=== PATIENT | female | born 2000 | race Caucasian/White ===

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

== ENCOUNTER 2023-05-22 23:29 | Inpatient (IN) ==
[2023-05-23] MEDS ORDERED: LIDOCAINE 1% LOCAL 20 ML VIAL INFIL PRN
--- NOTE | 2023-05-23 00:05 | History & Physical Report ---
Date of Service May 23, 2023 Assessment & Plan (1) Supervision of normal intrauterine in multigravida: Plan: Admit to L&D. EFM/toco. Labs. IV. OK for epidural if she desires. History of Present Illness Chief Complaint: contractions Primary Care Provider: RACHEL Batista 23yo @ 39 06/26, here with contractions. No leaking, no vaginal bleeding. +FM. Need for Rhogam due to RH Negative Mother *Rhogam given 10/10/22 Medical Marijuana Card--weaned and d/c once +upt covid unvaccinated Rubella equivocal-offer MMR pp Flu shot given 02/06/23 - [place] Rhogam given 03/08/23 - [place] Allergies Allergy/AdvReac Type Severity Reaction Status Date / Time No Known Allergies Allergy Verified 05/21/23 13:04 Home Medications Medication Instructions Recorded Confirmed Type valacyclovir 1 gram tablet 2,000 mg (2 x 1 gram) PO 04/24/22 05/21/23 Rx DIRECTED PRN Cold Sores #4 tabs vitamin#30 30 mg iron-10 1 cap PO DAILY #90 caps 11/23/22 05/21/23 Rx mg iron-folic acid 1 mg-omg3 capsule albuterol sulfate 90 mcg/actuation 2 puff inhalation QID PRN 11/27/22 05/21/23 Rx aerosol inhaler Shortness Of Breath Or Wheezing #8.5 grams polyethylene glycol 3350 17 17 g PO DAILY PRN constipation 01/07/23 05/21/23 History gram/dose oral powder (Miralax) Patient History Medical History Anxiety and depression Bipolar disorder Celiac disease Constipation GERD (gastroesophageal reflux disease) History of COVID-19 06/12/20>HEADACHE/SINUS CONGESTION Hx of migraines Medical marijuana use Pelvic inflammatory disease Post traumatic stress disorder Wheezing WILL USE INHALER/WHEN GETS A COLD WILL NEED INHALER (USED LAST WINTER) Surgical History H/O knee surgery left knee-2017 History of anesthesia reaction ASPIRATED WITH T&A History of cholecystectomy History of colonoscopy last 07/03/21 @ [facility] History of esophagogastroduodenoscopy (EGD) last 07/03/21 @ [facility] History of tonsillectomy and adenoidectomy (07/07/12) Hx of appendectomy [place] teeth removed Family History Father Diabetes Anxiety Kidney stones Asthma Mother Ovarian cyst Cholelithiasis Diabetes Immunodeficiency disorder Migraine headache Hypothyroidism Family history of reaction to anesthesia PONV Cystic fibrosis Allergic rhinitis Celiac disease Asthma Sister Asthma Grandfather (Paternal) Diabetes Grandfather (Maternal) Diabetes Aunt Family hx of colon cancer Colorectal cancer Maternal Grandmother (Maternal) Ovarian cancer Denies family history of Prostate cancer Breast cancer Lung cancer Social History (Updated 10/11/22 @ 11:00 by Mery Askew) Smoking Status: Never smoker Second Hand Exposure: No; Do You Dip or Chew Tobacco: No; Hx Alcohol Use: No Hx Substance Use: Yes (medical marijuana) Last Used Substance Other:: RX MARIJUANA Preferred Language: [place]ib[place] Communication Ability: Effective Visual Impairment: No Limitations Hearing Ability: Normal Carpenter Assistant Required: No Beliefs That Will Affect Care: None marital status: Single marital status details: Lionel (46) [phone] Current Living Situation: Family and Significant Other Current Living Situation Comment: lives with fob, son, 2 dogs, 4 cats, 1 bunnny, fob to change litter current occupational status: unemployed Feels Safe at Home: Yes Childhood Exposure to Second-Hand Smoke: Yes caffeine: Yes Dental Care, Regularly: Yes Physical Activity Frequency: 3-4 Times per Week Seatbelt Use: always Sunscreen Use: No Assistive Devices: None Review of Systems All systems reviewed & are unremarkable except as noted in HPI & below Physical Exam Physical Exam: FHT Cat 1 [place] Q 2-4 SVE 4cm per RN exam on arrival Constitutional: WD/WN, vitals as above Respiratory: normal respiratory effort, lungs clear to auscultation no respiratory distress Cardiovascular: Rate/Rhythm: regular rate and regular rhythm Gastrointestinal (Abdomen): Inspection/Auscultation: abdomen normal to inspection Percussion/Palpation: abdomen soft; abdomen nontender Gravid. No s/s chorio or abruption. Skin: no rashes, warm and dry Psychiatric: A+Ox3, euthymic affect Results & Data Vital Signs (Past 12 Hours) Vital Signs Pulse BP 05/22/23 23:46 102 H 136/67 Coding Level of Care Code None Diagnoses Supervision of normal intrauterine in multigravida Z34.80
[2023-05-23] MEDS: LACTATED RINGER'S 1,000 ML IV PRN ×3 (00:10→07:04)
[2023-05-23 00:38] LABS: Hematocrit (blood only) 38.4 % (37.0-47.0); Hemoglobin 13.4 g/dl (12.0-16.0); Mean Corpuscular Hemoglobin 30.2 pg (25.0-34.0); Mean Corpuscular Hgb Conc 34.9 g/dL (32.0-36.0); Mean Corpuscular Volume 86.7 fL (80.0-100.0); Platelet Count 178 K/uL (130-400); RDW Standard Deviation 40.5 fL (36.4-46.3); Red Blood Count 4.43 M/uL (4.20-5.40); White Blood Count 13.16 K/ul (4.8-10.8)
[2023-05-23] MEDS ORDERED: fentaNYL citrate PF 100 MCG/2 ML VIAL ONE (02:14)
[2023-05-23] MEDS ORDERED: ePHEDrine sulfate 50 MG/ML AMP ONE (02:15)
[2023-05-23] MEDS ORDERED: fentANYL 2 MCG/ML BUPIVacaine 0.125%-NSS 100ML BAG ONE (02:15)
[2023-05-23] MEDS ORDERED: SODIUM CHLORIDE 0.9% PF INJ 10 ML VIAL ONE (02:15)
[2023-05-23] MEDS ORDERED: LIDOCAINE 2%/EPINEPHRINE 1:200,000 20 ML PF ONE (02:15)
[2023-05-23] MEDS ORDERED: BUPIVACAINE 0.25% PF 30 ML VIAL ONE (02:15)
[2023-05-23] MEDS ORDERED: fentaNYL citrate PF 100 MCG/2 ML VIAL EPI PRN (02:21)
[2023-05-23] MEDS ORDERED: LIDOCAINE 2%/EPINEPHRINE 1:200,000 20 ML PF EPI STA (02:21)
[2023-05-23] MEDS ORDERED: NALOXONE HCL 0.4 MG/1 ML VIAL/CARP IV PRN (02:21)
[2023-05-23] MEDS ORDERED: ROPIVACAINE 0.5% PF 5 MG/ML 20 ML VIAL EPI PRN (02:21)
[2023-05-23] MEDS ORDERED: NALBUPHINE HCL 5 MG in SYRINGE 0 ML IV PRN (02:21)
[2023-05-23] MEDS ORDERED: SODIUM CHLORIDE 0.9% PF INJ 10 ML VIAL EPI PRN (02:21)
[2023-05-23] MEDS ORDERED: fentANYL 2 MCG/ML BUPIVacaine 0.125%-NSS 100ML BAG EPI PRN (02:21)
[2023-05-23] MEDS ORDERED: BUPIVACAINE 0.25% PF 30 ML VIAL EPI PRN (02:21)
[2023-05-23] MEDS ORDERED: diphenhydrAMINE 50 MG/ML VIAL IV PRN (02:21)
[2023-05-23] MEDS ORDERED: SODIUM CHLORIDE 0.9% PF INJ 10 ML VIAL EPI STA (02:21)
[2023-05-23] MEDS ORDERED: BUPIVACAINE 0.25% PF 30 ML VIAL EPI STA (02:21)
[2023-05-23] MEDS ORDERED: fentaNYL citrate PF 100 MCG/2 ML VIAL EPI STA (02:21)
[2023-05-23] MEDS ORDERED: NALOXONE HCL 1 MG in SODIUM CHLORIDE 0.9% 1,000 ML IV PRN (02:21)
[2023-05-23] MEDS ORDERED: LIDOCAINE 2% MPF LOCAL 5 ML VIAL EPI PRN (02:21)
--- NOTE | 2023-05-23 02:21 | Anesthesiology Consultation ---
Date of Service May 23, 2023 Assessment & Plan Chart Review Chart Review: Acceptable Risk for Labor Epidural Consults Requested none History Height/Weight Height: 5 ft 4 in Weight: 89.358 kg Allergies Allergy/AdvReac Type Severity Reaction Status Date / Time No Known Allergies Allergy Verified 05/21/23 13:04 Medications Home Medications Medication Instructions Recorded Confirmed Last Taken valacyclovir 1 gram tablet 2,000 mg (2 x 1 gram) PO 04/24/22 05/23/23 Unknown DIRECTED PRN Cold Sores #4 tabs vitamin#30 30 mg iron-10 1 cap PO DAILY #90 caps 11/23/22 05/23/23 Unknown mg iron-folic acid 1 mg-omg3 capsule albuterol sulfate 90 mcg/actuation 2 puff inhalation QID PRN 11/27/22 05/23/23 Unknown aerosol inhaler Shortness Of Breath Or Wheezing #8.5 grams polyethylene glycol 3350 17 17 g PO DAILY PRN constipation 01/07/23 05/23/23 Unknown gram/dose oral powder (Miralax) Active Medications Generic Name Dose Route Start Last Admin Trade Name Freq PRN Reason Stop Dose Admin Lactated Ringer's 1,000 mls @ 125 mls/hr 05/23/23 00:00 05/23/23 00:10 Lr IV 05/25/23 00:00 125 mls/hr .Q8H PRN Administration L&D Protocol Protocol Past Medical History Medical History Anxiety and depression Bipolar disorder Celiac disease Constipation GERD (gastroesophageal reflux disease) History of COVID-19 06/12/20>HEADACHE/SINUS CONGESTION Hx of migraines Medical marijuana use Pelvic inflammatory disease Post traumatic stress disorder Wheezing WILL USE INHALER/WHEN GETS A COLD WILL NEED INHALER (USED LAST WINTER) Past Family History Family History Father Diabetes Anxiety Kidney stones Asthma Mother Ovarian cyst Cholelithiasis Diabetes Immunodeficiency disorder Migraine headache Hypothyroidism Family history of reaction to anesthesia PONV Cystic fibrosis Allergic rhinitis Celiac disease Asthma Sister Asthma Grandfather (Paternal) Diabetes Grandfather (Maternal) Diabetes Aunt Family hx of colon cancer Colorectal cancer Maternal Grandmother (Maternal) Ovarian cancer Denies family history of Prostate cancer Breast cancer Lung cancer Past Surgical History Surgical History H/O knee surgery left knee-2018 History of anesthesia reaction ASPIRATED WITH T&A History of cholecystectomy History of colonoscopy last 07/03/21 @ [facility] History of esophagogastroduodenoscopy (EGD) last 07/03/21 @ [facility] History of tonsillectomy and adenoidectomy (07/07/12) Hx of appendectomy [place] teeth removed Social History Smoking Status: Former smoker tobacco type: cigarettes and e-cigarettes Do You Dip or Chew Tobacco: No Hx Alcohol Use: No Hx Substance Use: No substance use type: former substance user and marijuana Substance Use Type Other:: medical marijuana card Last Used Substance Other:: stopped when she found out she was Physical Exam Vital Signs Last Vital Signs Temp 36.5 C 05/22/23 23:56 Pulse 78 05/23/23 02:04 Resp 18 05/22/23 23:56 BP 114/57 L 05/23/23 02:04 Constitutional WD/WN, vitals as above Respiratory normal respiratory effort, lungs clear to auscultation no respiratory distress Cardiovascular Rate/Rhythm: regular rate and regular rhythm Gastrointestinal (Abdomen) Inspection/Auscultation: abdomen normal to inspection Percussion/Palpation: abdomen soft; abdomen nontender Skin no rashes, warm and dry Psychiatric A+Ox3, euthymic affect Testing Laboratory Results 05/23/23 00:14
[2023-05-23] MEDS: ePHEDrine sulfate 50 MG/ML AMP IV PRN ×2 (03:00→03:10)
--- NOTE | 2023-05-23 06:47 | Labor Progress Brief Note ---
Date of Service May 23, 2023 Subjective Comfortable with epidural. FHT Cat 1 [place] Q 2-4 SVE 6/80/-2 AROM clear fluid. Continue labor/pitocin for augmentation. Assessment & Plan Admission and Anticipated Discharge Date Admission Date: May 23, 2023 Results & Data Vital Signs (Past 12 Hours) Vital Signs Temp Pulse Resp BP Pulse Ox 05/23/23 06:43 98 H 93 05/23/23 06:42 94 H 96 05/23/23 06:37 76 93 05/23/23 06:32 77 93 05/23/23 06:30 18 05/23/23 06:30 18 05/23/23 06:29 82 101/53 L 05/23/23 06:27 75 92 05/23/23 06:23 80 94 05/23/23 06:22 79 94 05/23/23 06:17 82 93 05/23/23 06:14 76 112/56 L 05/23/23 06:12 79 93 05/23/23 06:11 85 94 05/23/23 06:07 98 H 94 05/23/23 06:02 80 94 05/23/23 06:01 81 94 05/23/23 06:00 82 108/54 L 05/23/23 05:57 86 96 05/23/23 05:56 97 H 94 05/23/23 05:52 88 95 05/23/23 05:50 87 94 05/23/23 05:47 84 95 05/23/23 05:44 81 05/23/23 05:44 90 114/54 L 94 05/23/23 05:42 92 H 93 05/23/23 05:37 103 H 94 05/23/23 05:32 88 93 05/23/23 05:31 83 116/56 L 05/23/23 05:30 18 05/23/23 05:30 18 05/23/23 05:27 81 93 05/23/23 05:22 82 92 05/23/23 05:17 94 H 94 05/23/23 05:14 85 05/23/23 05:14 79 120/58 L 94 05/23/23 05:12 85 95 05/23/23 05:07 90 96 05/23/23 05:02 85 96 05/23/23 05:00 37.0 C 86 18 121/58 L 05/23/23 04:57 91 H 98 05/23/23 04:56 104 H 93 05/23/23 04:55 85 125/56 L 05/23/23 04:52 86 97 05/23/23 04:47 91 H 97 05/23/23 04:44 82 91/47 L 05/23/23 04:42 86 97 05/23/23 04:37 102 H 96 05/23/23 04:32 85 97 05/23/23 04:30 85 18 99/49 L 05/23/23 04:27 87 97 05/23/23 04:22 85 97 05/23/23 04:17 107 H 97 05/23/23 04:15 102 H 97/49 L 05/23/23 04:12 107 H 98 05/23/23 04:07 99 H 98 05/23/23 04:02 86 97 05/23/23 04:01 93 H 97/53 L 05/23/23 04:00 18 05/23/23 04:00 18 05/23/23 03:57 84 97 05/23/23 03:52 89 97 05/23/23 03:47 84 97 05/23/23 03:46 85 104/50 L 05/23/23 03:42 82 97 05/23/23 03:37 103 H 96 05/23/23 03:32 84 98 05/23/23 03:30 37.0 C 80 18 95/51 L 05/23/23 03:27 80 98 05/23/23 03:23 83 103/54 L 05/23/23 03:22 85 98 05/23/23 03:17 86 98 05/23/23 03:16 87 99/53 L 05/23/23 03:12 87 95 05/23/23 03:07 96 05/23/23 03:07 95 H 05/23/23 03:07 88 96/51 L 05/23/23 03:03 80 97/51 L 05/23/23 03:02 80 96 05/23/23 02:59 96 H 88/49 L 05/23/23 02:58 88 94 05/23/23 02:57 96 H 95 05/23/23 02:56 84 91/50 L 05/23/23 02:54 93 H 92/52 L 05/23/23 02:53 100 H 05/23/23 02:53 98 H 98/47 L 94 05/23/23 02:52 100 H 95 05/23/23 02:50 109 H 97/46 L 05/23/23 02:47 104 H 97/59 L 95 05/23/23 02:45 98 H 94 05/23/23 02:44 89 114/59 L 05/23/23 02:42 91 H 91 05/23/23 02:37 94 H 93 05/23/23 02:33 114 H 94 05/23/23 02:32 102 H 94 05/23/23 02:28 97 H 94 05/23/23 02:27 92 H 94 05/23/23 02:04 78 114/57 L 05/22/23 23:56 36.5 C 18 05/22/23 23:46 102 H 136/67 Coding Level of Care Code None
--- NOTE | 2023-05-23 10:06 | Delivery Summary ---
Vaginal Delivery Summary Date of Service May 23, 2023 Vaginal Delivery Summary [facility] PREOPERATIVE DIAGNOSIS: 1. Single intrauterine at 39 2/7 wga 2. Labor 3. Rh neg POSTOPERATIVE DIAGNOSIS: 1. Single intrauterine at 39 2/7 wga 2. Labor 3. Rh neg 4. Delivered PROCEDURE: 1. Normal spontaneous vaginal delivery. SURGEON: Lacie Terrell MD ANESTHESIA: Epidural. ESTIMATED BLOOD LOSS: 300 mL FLUIDS: Continuous LR. URINE OUTPUT: None. COMPLICATIONS: Shoulder dystocia CONDITION: Stable. INDICATIONS: 23 yo at 39 2/7 wga presented earlier this morning w/ contractions and admitted in labor. She received an epidural for pain control and underwent AROM. She was started on pitocin due to contractions spacing out. She progressed to complete and desired to push FINDINGS: A viable male , weight pending with Apgars of 8 and 9 at 1 and 5 minutes respectively. SPECIMEN: Cord blood OPERATIVE REPORT: The patient progressed to 10 cm, 100% effaced and +2 station, pushed over intact perineum with anesthesia to deliver a viable male infant, we ight and Apgars as above. Head of delivered in CHARISSA position. No nuchal cord was present. Body and shoulders did not deliver with gentle downward traction and shoulder dystocia was called. Head of bed was laid down, McRobert's maneuver and suprapubic pressure were performed and anterior shoulder delivered. Remainder of body delivered without difficulty was delivered to maternal abdomen and nursing staff. Delayed cord clamping was performed for 60 seconds. Cord was clamped and cut. Cord blood was obtained. Placenta delivered spontaneously intact with 3-vessel cord. IV oxytocin and fundal massage were given for excellent hemostasis. Vagina, cervix, perineum, and placenta were inspected. No lacerations were noted, hemostatic abrasion was noted on superior labia bilaterally that did not need repair. Sponge and needle counts correct x2. No sponges were left behind. Mother and stable in immediate period. [facility] [place] Vaginal Delivery Codes: 98461 global code for the antepartum, delivery, and post- Delivery Type Details: [facility]
[2023-05-23] MEDS ORDERED: OXYTOCIN 30 UNITS/NSS 30 UNITS/500 ML BAG IV PRN ×2 (10:12)
[2023-05-23] MEDS ORDERED: ALBUTEROL HFA 8 GM INHALER INH PRN (10:12)
[2023-05-23] MEDS ORDERED: ACETAMINOPHEN 325 MG TAB PO PRN (10:12)
[2023-05-23] MEDS ORDERED: HYDROCORTISONE ACETATE 25 MG SUPP PR PRN (10:12)
[2023-05-23] MEDS ORDERED: BENZOCAINE 20% SPRY 85 APPLN/85 GM CAN EXT PRN (10:12)
[2023-05-23] MEDS ORDERED: MEASLES, MUMPS & RUBELLA VIRUS VACCINE (MMR) VIAL SQ ONE (10:12)
[2023-05-23] MEDS ORDERED: bisacodyL 10 MG SUPP PR PRN (10:12)
[2023-05-23] MEDS ORDERED: DIPHTHERIA/TETANUS/PERTUSSIS Vaccine (Tdap, Age 7+yrs) 0.5mL SYR/VL IM ONE (10:12)
[2023-05-23 10:14] LABS: Base Excess Cord Arterial Bld -4.9 mEq/L (-9-1.8); CO2 Cord Arterial Blood 64 mmHg (39.1-73.5); HCO3 Cord Arterial Blood 24 mmol/L (19.7-28.5); Oxygen Sat Cord Arterial Blood < 60.0 % (<60); PO2 Cord Arterial Blood < 20 mmHg (4.1-31.7); pH Cord Arterial Blood 7.19 (7.1-7.38)
[2023-05-23 10:15] LABS: Base Excess Cord Venous Blood -3.6 mEq/L (-7.7-1.9); Cord Venous Blood HCO3 24 mmol/L (18.4-26.8); Cord Venous Blood PCO2 52 mmHg (30.4-57.2); Cord Venous Blood PO2 22 mmHg (14.1-43.3); Cord Venous Blood pH 7.27 (7.20-7.44); O2 Saturation Cord Venous Bld < 60.0 % (<68)
[2023-05-23] MEDS: IBUPROFEN 600 MG TAB PO PRN ×3 (11:27→23:44)
--- NOTE | 2023-05-23 12:06 | Anesthesia Procedure Note ---
Date of Service May 23, 2023 Anesthesia Post Epidural Note Vital Signs Vital Signs: Temp Pulse Resp BP Pulse Ox 36.8 C 68 18 108/56 L 89 L 05/23/23 10:00 05/23/23 11:59 05/23/23 11:30 05/23/23 11:59 05/23/23 09:44 Pain Intensity Abdomen: Pain Intensity: 3 Notes Mental Status: alert / awake / arousable and participated in evaluation Nausea / Vomiting: adequately controlled Pain: adequately controlled Airway Patency, RR, SpO2: stable & adequate BP & HR: stable & adequate Hydration State: stable & adequate Neuraxial Anesthesia: was administered and sensory block is resolving Anesthetic Complications: no major complications apparent Epidural: Removed without complications and With tip intact
[2023-05-23] MEDS: DOCUSATE SODIUM 100 MG CAP PO SCH (20:42)
--- NOTE | 2023-05-24 07:16 | Obstetrical Progress Note ---
Date of Service May 24, 2023 Assessment & Plan (1) Supervision of normal intrauterine in multigravida: Plan 23 yo PP1 s/p , doing well VSS Rh neg, needs rhogam; rub equiv, mmr ordered desires dc home after 24 hrs, ok to do so Subjective Ambulation: ambulating normally Voiding: no voiding problems Passing Gas:: Yes Diet Tolerance:: regular diet Lochia:: Small Feeding Type:: breast feeding Pain well managed with medication Review of Systems Denies fevers, chills, n/v, FIERRO, CP, SOB Physical Exam Constitutional WD/WN, vitals as above no acute distress Respiratory normal respiratory effort, lungs clear to auscultation Cardiovascular RRR, no murmur, no edema Gastrointestinal (Abdomen) Percussion/Palpation: abdomen soft; abdomen nontender fundus firm at umbilicus and NT Musculoskeletal BLE symmetric, nonerythematous, nontender Results & Data Vital Signs (Past 12 Hours) Vital Signs Temp Pulse Resp BP Pulse Ox O2 Del Method 05/24/23 04:03 97.7 F 77 18 104/67 97 Room Air 05/23/23 23:11 97.9 F 75 18 112/69 97 Room Air
[2023-05-24] MEDS ORDERED: FERROUS SULFATE 325 MG TAB PO SCH (08:00)
[2023-05-24] MEDS ORDERED: PRENATAL VITAMIN 1 TAB PO SCH (08:00)
[2023-05-24] MEDS: DOCUSATE SODIUM 100 MG CAP PO SCH (08:17)
[2023-05-24] MEDS: IBUPROFEN 600 MG TAB PO PRN (08:17)
[2023-05-24] MEDS ORDERED: MEASLES, MUMPS & RUBELLA VIRUS VACCINE (MMR) VIAL ONE (09:43)
[2023-05-24] MEDS ORDERED: bisacodyL 5 MG TABEC PO SCH (20:00)
== END 2023-05-24 12:00 | disposition home or self-care (01) | DRG 807 ==
LOC: OPB 23:29 → 4S1 23:30 → 4E2 05-23 12:54

== ENCOUNTER 2024-08-11 07:37 | Inpatient (IN) ==
[2024-08-11] MEDS ORDERED: LIDOCAINE 1% LOCAL 20 ML VIAL INFIL PRN (07:45)
--- NOTE | 2024-08-11 07:49 | History & Physical Report ---
Date of Service August 11, 2024 Assessment & Plan (1) Supervision of normal intrauterine in multigravida: Plan: Admit to L&D. EFM/toco. Labs. Desires epidural if there is time. History of Present Illness Chief Complaint: labor Primary Care Provider: RACHEL Batista 24yo @ 38 07/24, regular contractions - feeling pressure, urge to push. No leaking fluid. No vaginal bleeding. + movement. and Delivery Plans *Rh negative -Rhogam at 28 weeks -Rhogam given 06/09/24 *Marijuana use in Hepatitis B Non Immune *Recommend Hepatitis B Vaccine Allergies Allergy/AdvReac Type Severity Reaction Status Date / Time No Known Allergies Allergy Verified 08/05/24 13:18 Home Medications Medication Instructions Recorded Confirmed Type albuterol sulfate 90 mcg/actuation 2 puff inhalation QID PRN 11/27/22 08/05/24 Rx aerosol inhaler Shortness Of Breath Or Wheezing #8.5 grams cholecalciferol (vitamin D3) 125 125 mcg PO DAILY #30 caps 12/16/23 08/05/24 Rx mcg (5,000 unit) capsule polyethylene glycol 3350 17 17 g PO DAILY PRN 05/15/24 08/05/24 History gram/dose oral powder (Miralax) vitamin no.180-ferrous 1 tab PO DAILY 90 days #90 tabs 06/11/24 08/05/24 Rx fumarate 27 mg-folic acid 1 mg tablet ( Plus Vitamin-Mineral) ondansetron 4 mg disintegrating 4 mg PO Q6H PRN nausea and 06/27/24 08/05/24 Rx tablet vomiting #14 tabs Patient History Medical History Cold sore Abnormal Pap smear of cervix Pain in female genitalia on intercourse Weight loss Bruises easily Dizziness on standing Weight loss Pelvic pain Abnormal weight loss Vitamin D deficiency Headache Encounter for laboratory testing for COVID-19 virus Left low back pain Left upper quadrant abdominal pain Amenorrhea, secondary Acute otitis media Acne Bilateral otitis media Chronic diarrhea Anxiety GERD (gastroesophageal reflux disease) Allergic rhinitis Asthma (07/07/12) Celiac disease Medical marijuana use GERD (gastroesophageal reflux disease) Bipolar disorder Post traumatic stress disorder History of COVID-19 06/12/20>HEADACHE/SINUS CONGESTION Hx of migraines Anxiety and depression Wheezing WILL USE INHALER/WHEN GETS A COLD WILL NEED INHALER (USED LAST WINTER) Constipation Pelvic inflammatory disease Surgical History History of anesthesia reaction ASPIRATED WITH T&A History of colonoscopy last 07/03/21 @ [facility] History of esophagogastroduodenoscopy (EGD) last 07/03/21 @ [facility] [place] teeth removed H/O knee surgery left knee-2018 History of cholecystectomy Hx of appendectomy History of tonsillectomy and adenoidectomy (07/07/12) Family History Father Diabetes Anxiety Kidney stones Asthma Mother Ovarian cyst Immunodeficiency disorder Migraine headache Hypothyroidism Family history of reaction to anesthesia PONV Cystic fibrosis Allergic rhinitis Celiac disease Asthma Cholelithiasis Diabetes Sister Asthma Grandfather (Paternal) Diabetes Grandfather (Maternal) Diabetes Aunt Family hx of colon cancer Colorectal cancer Maternal Grandmother (Maternal) Ovarian cancer Denies family history of Prostate cancer Breast cancer Lung cancer Social History Smoking Status: Never smoker Tobacco Type: E-cigarettes / Vaping Second Hand Exposure: No; Do You Dip or Chew Tobacco: No; Hx Alcohol Use: No Hx Substance Use: Yes (Medical marijuana) Prescribed Medications: Marijuana Substance Use Type Other:: medical marijuana card Preferred Language: Portuguese Communication Ability: Effective Visual Impairment: No Limitations Hearing Ability: Normal Cake Washer Required: No Beliefs That Will Affect Care: None marital status: Single marital status details: Lionel (24) [phone] Current Living Situation: Parent, Family and Significant Other Current Living Situation Comment: Lives with mother, father, siblings, GM, 2 children, and FOB current occupational status: unemployed How many Children do You have: 2 Feels Safe at Home: Yes Childhood Exposure to Second-Hand Smoke: Yes caffeine: Yes Dental Care, Regularly: Yes Physical Activity Frequency: 3-4 Times per Week Seatbelt Use: always Sunscreen Use: No Assistive Devices: None Review of Systems All systems reviewed & are unremarkable except as noted in HPI & below Physical Exam Constitutional: WD/WN, vitals as above Respiratory: normal respiratory effort, lungs clear to auscultation no respiratory distress Cardiovascular: Rate/Rhythm: regular rate and regular rhythm Gastrointestinal (Abdomen): Inspection/Auscultation: abdomen normal to inspection Percussion/Palpation: abdomen soft; abdomen nontender Gravid. No s/s chorio or abruption. Skin: no rashes, warm and dry Psychiatric: A+Ox3, euthymic affect Results & Data Vital Signs (Past 12 Hours) Vital Signs Pulse BP 08/11/24 07:43 71 129/68 Coding Level of Care Code None Diagnoses Supervision of normal intrauterine in multigravida Z34.80
[2024-08-11] MEDS: LACTATED RINGER'S 1,000 ML IV PRN (07:51)
[2024-08-11 08:22] LABS: Hemoglobin 13.8 g/dl (12.0-16.0); Mean Corpuscular Hemoglobin 30.3 pg (25.0-34.0); Mean Corpuscular Hgb Conc 35.4 g/dL (32.0-36.0); Mean Corpuscular Volume 85.5 fL (80.0-100.0); Mean Platelet Volume 10.8 fL (9.4-12.4); Platelet Count 160 K/uL (130-400); RDW Coefficient of Variation 13.2 % (11.5-14.5); RDW Standard Deviation 40.1 fL (36.4-46.3); Red Blood Count 4.56 M/uL (4.20-5.40); White Blood Count 11.15 K/ul (4.8-10.8)
[2024-08-11] MEDS: OXYTOCIN 30 UNITS/NSS 30 UNITS/500 ML BAG IV PRN (08:25)
[2024-08-11] MEDS: KETOROLAC 30 MG/ML VIAL IV ONE (08:26)
[2024-08-11] MEDS ORDERED: ACETAMINOPHEN 325 MG TAB PO PRN (08:28)
[2024-08-11] MEDS ORDERED: OXYTOCIN 30 UNITS/NSS 30 UNITS/500 ML BAG IV PRN (08:28)
[2024-08-11] MEDS ORDERED: BENZOCAINE 20% SPRY 85 APPLN/85 GM CAN EXT PRN (08:28)
[2024-08-11] MEDS ORDERED: bisacodyL 10 MG SUPP PR PRN (08:28)
[2024-08-11] MEDS ORDERED: HYDROCORTISONE ACETATE 25 MG SUPP PR PRN (08:28)
--- NOTE | 2024-08-11 08:33 | Delivery Summary ---
Vaginal Delivery Summary Date of Service August 11, 2024 Vaginal Delivery Summary [facility] Vaginal Delivery Summary: Pre-delivery diagnoses: 24yo @ 38 3/7, spontaneous labor, Rh negative, Hep B nonimmune, marijuana use in Post-delivery diagnoses: same Procedure: spontaneous vaginal delivery Surgeon: Jenny Morgan DO Complications: none Findings: Viable male . Apgars: 8/9 . Weight pending, please see nursery records Estimated blood loss: 100cc - given precipitous nature of delivery, unable to calculate QBL Description of delivery: The patient progressed to complete without anesthesia. Amniotomy performed, as it would be quicker to deliver the baby for pain relief than wait for an epidural. She then began to push. She spontaneously vaginally delivered a viable from the cephalic presentation. The head delivered in TOMMY position. The anterior shoulder delivered, followed by the posterior shoulder, followed by the body. The baby was placed on mother's abdomen and a spontaneous cry was heard. Delayed cord clamping was employed, and the cord was doubly clamped and cut. Cord blood was obtained. The placenta was delivered spontaneously intact with a 3-vessel cord. The uterus and vagina were swept of clots and debris. IV pitocin was given. The uterus became firm. The cervix, vagina, and perineum were inspected and no lacerations were noted. Excellent hemostasis was observed. The mother and baby are recovering in stable and good condition in the room. Sponge and instrument counts were correct x 2. Jenny Morgan DO [facility] Vaginal Delivery Charge Vaginal Delivery Codes: 23827 global code for the antepartum, delivery, and post- Delivery Type Details: [facility]
[2024-08-11] MEDS: KETOROLAC 30 MG/ML VIAL ONE (10:38)
[2024-08-11] MEDS: IBUPROFEN 600 MG TAB PO PRN (15:25)
[2024-08-11] MEDS: fentaNYL citrate PF 100 MCG/2 ML VIAL ONE (16:22)
[2024-08-11] MEDS: ePHEDrine sulfate 50 MG/ML AMP ONE (16:22)
[2024-08-11] MEDS: BUPIVACAINE 0.25% PF 30 ML VIAL ONE (16:23)
[2024-08-11] MEDS: fentANYL 2 MCG/ML BUPIVacaine 0.125%-NSS 100ML BAG ONE (16:23)
[2024-08-11] MEDS: DIPHTHER/TETAN/PERTUS Vaccine (Tdap, Adol/Adult) 0.5mL IM ONE (16:23)
[2024-08-11] MEDS: LIDOCAINE 2%/EPINEPHRINE 1:200,000 20 ML PF ONE (16:23)
[2024-08-11] MEDS: SODIUM CHLORIDE 0.9% PF INJ 10 ML VIAL ONE (16:23)
[2024-08-11] MEDS: DOCUSATE SODIUM 100 MG CAP PO SCH (20:03)
--- NOTE | 2024-08-12 06:55 | Obstetrical Progress Note ---
Date of Service August 12, 2024 Assessment & Plan (1) Vaginal delivery: Plan Both mom and baby doing well. Discharge today as per protocol. Follow up after 6 weeks for visit. Admission and Anticipated Discharge Date Admission Date: August 11, 2024 Supervising Physician Co-Signing Physician Notes Resident Physician Supervision Note: I interviewed and examined the patient. Discussed with Dr. Figueredo and agree with findings and plan as documented in the note. Any exceptions or clarifications are listed here: Doing well. Routine care. Desires d/c today. Instructions reviewed. Documented By: Mckenna Lao MD, FACOG Subjective #1PPDDay following 24 years at 38+3 week POG. No active complains Both mom and baby doing well. Pain: Mild, intermittent Lochia: Moderate Diet: Regular Ob diet Gas: Not aware of passing, but no abdominal distension Peeing: Normal, no bladder distension Ambulation: Normally Review of Systems Review of Systems: As per HPI Physical Exam Physical Exam: General: Alert and oriented. No acute distress. CVS: S1 S2+ No murmurs, regular rhythm. Respiratory: CTA bilaterally. No rhonchi, wheezes, or crackles. No increased work of breathing. Abdomen: Bowel sound +. Soft, nontender Uterus: Fundus firm and palpable few cm below the umbilicus. Lower extremities: No LE edema. No deep calf pain. Results & Data Vital Signs (Past 12 Hours) Vital Signs Temp Pulse Resp BP Pulse Ox 08/12/24 03:15 36.5 C 83 18 112/67 98 08/11/24 23:18 36.7 C 73 18 103/61 97 08/11/24 20:30 36.5 C 68 18 107/67 98 Resident Activity Tracking Resident Involvement: Resident Care Provided Care Provided: OB Delivery
[2024-08-12] MEDS: PRENATAL VITAMIN 1 TAB PO SCH (07:45)
[2024-08-12 10:09] VITALS: BP 115/73; PULSE 70; RESP 16; TEMP 98.4; O2SAT 97
[2024-08-12] MEDS ORDERED: bisacodyL 5 MG TABEC PO SCH (20:00)
== END 2024-08-12 11:30 | disposition home or self-care (01) | DRG 806 ==
LOC: OPB 07:37 → 4S1 07:38 → 4E2 12:39
DX: Z28.39 Other underimmunization status; Z67.91 Unspecified blood type, Rh negative; Z3A.38 38 weeks gestation of pregnancy; Z37.0 Single live birth; F12.90 Cannabis use, unspecified, uncomplicated; O99.324 Drug use complicating childbirth; O36.0930 Maternal care for other rhesus isoimmunization, third trimester, not applicable or unspecified